=== PATIENT | female | born 1965 | race Caucasian/White ===

== ENCOUNTER → 2018-08-23 | Outpatient (REF) | payer OTHER | LOC: M LAB LCGH 13:25 | PROVIDERS: ATTEND Obstetrics & Gynecology | DX: Z01.419 Encounter for gynecological examination (general) (routine) without abnormal findings (principal) ==

== ENCOUNTER → 2024-12-02 | Outpatient (CLI) | payer OTHER | LOC: M PLAIMG 11:42 | PROVIDERS: ATTEND Otolaryngology | DX: K11.5 Sialolithiasis (principal) ==